=== PATIENT | female | born 1975 | race Caucasian/White ===

== ENCOUNTER 2018-09-05 20:45 | Emergency (ER) | payer MEDICAID ==
[~2018-09-05] VITALS: Ht 157.5 cm; Wt 52.2 kg
--- NOTE | 2018-09-05 21:36 | NUR ---
PT PRESENTED TO THE ER WITH A C/O SI WITH A PLAN TO RUN INTO TRAFFIC. PT WAS TRIAGED AND TAKEN TO ROOM #18. URINE SAMPLE WAS OBTAINED AND LAB IS IN THE ROOM FOR BLOOD DRAW.
[2018-09-05 22:01] LABS: BASOPHILS % (AUTO) 0.4 % (0.0-2.0); EOSINOPHILS % (AUTO) 0.9 % (0.0-6.0); HEMATOCRIT 39 % (33-45); HEMOGLOBIN 11.8 g/dL (11.5-14.8); LYMPHOCYTES # (AUTO) 2.4 /CMM (0.8-4.8); LYMPHOCYTES % (AUTO) 42.8 % (20.0-44.0); MEAN CORPUSCULAR HGB CONC 31 g/dl (31.0-36.0); MEAN CORPUSCULAR VOLUME 89 fL (82-100); MONOCYTES # (AUTO) 0.4 /CMM (0.1-1.30); MONOCYTES % (AUTO) 7.8 % (2.0-12.0); NEUTROPHILS # (AUTO) 2.7 /CMM (1.8-8.9); NEUTROPHILS % (AUTO) 48.1 % (43.0-81.0); PLATELET COUNT (AUTO) 224 /CMM (150-450); RED BLOOD CELL COUNT(AUTO) 4.36 MIL/uL (4.0-5.2); WHITE BLOOD COUNT (AUTO) 5.6 K/uL (4.3-11.0)
[2018-09-05 22:08] LABS: APPEARANCE,URINE CLOUDY (CLEAR); BILIRUBIN,URINE NEGATIVE (NEGATIVE); BLOOD, URINE 2+ Ery/uL (NEGATIVE); COLOR,URINE YELLOW (YELLOW); KETONES,URINE TRACE (NEGATIVE); LEUKOCYTE ESTERASE ,URINE TRACE (NEGATIVE); NITRITE, URINE NEGATIVE (NEGATIVE); PROTEIN,URINE TRACE mg/dl (NEGATIVE); UGLUCOSE NEGATIVE (NEGATIVE)
[2018-09-05 22:15] LABS: BACTERIA,URINE None seen /HPF (None Seen); SQUAMOUS EPITHELIAL CELL,UR Few /HPF (None Seen); WBC,URINE 0-2 /HPF (0-3)
[2018-09-05 22:17] LABS: ALBUMIN 3.8 g/dL (3.4-5.0); BILIRUBIN,DIRECT 0.1 mg/dL (0.0-0.2); BILIRUBIN,TOTAL 0.1 mg/dL (0.2-1.0); CALCIUM, SERUM 9.3 mg/dL (8.5-10.1); CREATININE 0.6 mg/dL (0.6-1.3); TOTAL PROTEIN, SERUM 7.9 g/dL (6.4-8.2)
[2018-09-05 22:19] LABS: SALICYLATE 2.2 mg/dL (2.8-20.0)
--- NOTE | 2018-09-05 22:45 | NUR ---
PT APPEARS TO BE RESTING COMFORTABLY WITH NO S/S OF PAIN OR DISTRESS.
[2018-09-05] MEDS ORDERED: POTASSIUM CHLORIDE 20 MEQ TAB.PRT.SR PO ONE ×2 (22:47→23:00)
--- NOTE | 2018-09-06 00:43 | NUR ---
PT APPEARS TO BE SLEEPING COMFORTABLY WITH NO S/S OF PAIN OR DISTRESS.
--- NOTE | 2018-09-06 05:50 | NUR ---
MELCHOR VO LCSW IS AT THE BEDSIDE SPEAKING TO THE PT.
--- NOTE | 2018-09-06 06:31 | NUR ---
Mariely jones in ED - 09/06/18 at [address] JENKINS IS AT THE BEDSIDE SPEAKING TO THE PT.
--- NOTE | 2018-09-06 06:48 | NUR ---
PT IS AWAKE AND TOLERATING PO WELL.
--- NOTE | 2018-09-06 07:00 | NUR ---
PT REC'D A WARM BLANKET. PT APPEARS TO BE RESTING COMFORTABLY WITH NO S/S OF PAIN OR DISTRESS.
--- NOTE | 2018-09-06 07:09 | NUR ---
CALLING REPORT TO NURSE AT UNIT ONE. REPORT GIVEN TO JANINE GREENE
--- NOTE | 2018-09-06 07:13 | NUR ---
[facility] CALLED FOR TRANSPORT. ETA 1030 TRIP# [id number]
--- NOTE | 2018-09-06 07:30 | NUR ---
REPORT GIVEN TO JANINE LINDSAY FOR [facility].
--- NOTE | 2018-09-06 07:52 | NUR ---
Patient resting well. No distress at this time.
--- NOTE | 2018-09-06 10:53 | NUR ---
Patient A/Ox4. Picked up by [address] [facility]. Report given. Patient has no SI at this time.
[2018-09-06 10:56] VITALS: BP 131/92
== END 2018-09-06 10:57 ==
LOC: ER 20:51
DX: R45.851 Suicidal ideations (principal); F19.10 Other psychoactive substance abuse, uncomplicated; I10 Essential (primary) hypertension; E10.9 Type 1 diabetes mellitus without complications; F41.9 Anxiety disorder, unspecified; Z98.890 Other specified postprocedural states; Z88.5 Allergy status to narcotic agent; Z59.0 Homelessness
CPT/HCPCS: 36415; 80048-TC; 80076-TC; 80305; 81000-TC; 83735-TC; 84703-TC; 85025-TC; G0480